=== PATIENT | male | born 1940 | race Caucasian/White ===

== ENCOUNTER 2021-09-01 17:21 | Inpatient (IN) | payer MEDICARE ==
[~2021-09-01] VITALS: Ht 167.6 cm; Wt 100.5 kg
[2021-09-01 18:06] LABS: BASOPHILS % (AUTO) 0.3 % (0.0-2.0); EOSINOPHILS % (AUTO) 0.7 % (1.0-6.0); HEMATOCRIT 44.7 % (41-53); HEMOGLOBIN 15.1 g/dL (13.5-17.5); LYMPHOCYTES # (AUTO) 1.3 K/uL (1.0-4.8); LYMPHOCYTES % (AUTO) 15.1 % (22.0-44.0); MEAN CORPUSCULAR HEMOGLOBIN 29.5 pg (26.0-34.0); MEAN CORPUSCULAR HGB CONC 33.7 G/dL (31.0-37.0); MEAN CORPUSCULAR VOLUME 87 fL (80-100); MONOCYTES # (AUTO) 0.5 K/uL (0.1-1.0); NEUTROPHILS # (AUTO) 6.9 K/uL (1.8-7.7); NEUTROPHILS % (AUTO) 77.9 % (40.0-70.0); PLATELET COUNT (AUTO) 217 K/uL (150-450); RED BLOOD CELL COUNT(AUTO) 5.11 MIL/uL (4.50-5.90); RED CELL DISTRIBUTION WIDTH 14.7 % (11.5-14.5)
[2021-09-01] MEDS ORDERED: DEXTROSE 50%-WATER 25 GM/50 ML SYRINGE IVP PRN (18:15)
[2021-09-01] MEDS ORDERED: INSULIN LISPRO 100 UNITS/ML SQ PRN (18:15)
[2021-09-01] MEDS ORDERED: OxyCODONE HCL/ACETAMINOPHEN 5-325 MG TABLET PO PRN (18:15)
[2021-09-01] MEDS ORDERED: MORPHINE SULFATE 4 MG/ML SYRINGE IVP PRN (18:15)
[2021-09-01] MEDS ORDERED: ONDANSETRON HCL 4 MG/2 ML VIAL IVP PRN (18:15)
[2021-09-01 18:20] LABS: PROTHROMBIN TIME 10.9 SEC (9.4-11.6)
[2021-09-01 18:25] LABS: CALCIUM, TOTAL 9.1 mg/dL (8.8-10.5); CREATININE 1.48 mg/dL (0.60-1.30); POTASSIUM 3.5 mmol/L (3.5-5.1)
[2021-09-01 18:48] LABS: ALBUMIN 3.3 g/dL (3.4-5.0); BILIRUBIN,TOTAL 0.4 mg/dL (0.1-1.0); MAGNESIUM 2.1 mg/dL (1.80-2.40); THYROID STIMULATING HORMONE 2.38 uIU/mL (0.36-3.74); TOTAL PROTEIN, SERUM 6.8 g/dL (6.4-8.2)
[2021-09-01 19:08] LABS: COVID AG,FIA SOURCE NASAL SWAB
[2021-09-01 19:45] VITALS: BP 143/74
[2021-09-01] MEDS: DOCUSATE SODIUM 100 MG CAPSULE PO SCH (21:00)
[2021-09-01] MEDS: CARVEDILOL 6.25 MG TABLET PO SCH (21:19)
[2021-09-01] MEDS: HEPARIN SODIUM,PORCINE 5,000 UNITS/ML VIAL SQ SCH (23:34)
[2021-09-01 23:58] VITALS: BP 117/54
[2021-09-02] VITALS (18 sets, daily range): BP systolic 95–152; BP diastolic 54–87
[2021-09-02 02:01] LABS: GLUCOMETER DEV NAME(LOC) 5S.2B; GLUCOSE,POINT OF CARE 130 MG/DL (70-110)
[2021-09-02] MEDS ORDERED: OMEP20 PO (04:16)
[2021-09-02] MEDS: HEPARIN SODIUM,PORCINE 5,000 UNITS/ML VIAL SQ SCH ×2 (08:14→16:00)
[2021-09-02] MEDS: ASPIRIN 81 MG CHEWABLE TABLET PO SCH (08:15)
[2021-09-02] MEDS: ATORVASTATIN CALCIUM 40 MG TABLET PO SCH (08:15)
[2021-09-02] MEDS: CARVEDILOL 6.25 MG TABLET PO SCH ×3 (08:15→20:45)
[2021-09-02] MEDS: FAMOTIDINE 20 MG TABLET PO SCH (08:15)
[2021-09-02] MEDS: DOCUSATE SODIUM 100 MG CAPSULE PO SCH ×2 (08:15→20:44)
[2021-09-02] MEDS ORDERED: MECL-134 PO (08:28)
[2021-09-02] MEDS ORDERED: TAMS-13 PO (08:28)
[2021-09-02] MEDS ORDERED: CLOP75TA60 PO (08:28)
[2021-09-02] MEDS ORDERED: AMIT25TA10 PO (08:28)
[2021-09-02] MEDS ORDERED: GABA-1216 PO (08:28)
[2021-09-02] MEDS ORDERED: ERGO500054 PO (08:28)
[2021-09-02] MEDS ORDERED: LEVO25TA9 PO (08:40)
[2021-09-02] MEDS ORDERED: LORA10TA7 PO (08:40)
[2021-09-02] MEDS ORDERED: FINA-27 PO (08:40)
[2021-09-02] MEDS ORDERED: ATOR20TA86 PO (08:40)
[2021-09-02] MEDS ORDERED: GLIM2 PO (08:40)
[2021-09-02] MEDS ORDERED: FURO20 PO (08:40)
[2021-09-02 12:51] LABS: GLUCOMETER DEV NAME(LOC) 5N.1C; GLUCOSE,POINT OF CARE 134 MG/DL (70-110)
[2021-09-02 12:51] LABS: GLUCOMETER DEV NAME(LOC) 5N.1C; GLUCOSE,POINT OF CARE 95 MG/DL (70-110)
[2021-09-02] MEDS ORDERED: 0.9% SODIUM CHLORIDE 10 ML SYRINGE IVP ONE (13:26)
[2021-09-02] MEDS ORDERED: LIDOCAINE/PF 1% 30 ML VIAL ONE (13:28)
[2021-09-02] MEDS ORDERED: IOHEXOL 300 MG/ML 100 ML VIAL ONE (13:28)
[2021-09-02] MEDS ORDERED: SODIUM BICARBONATE 50 MEQ/50 ML VIAL ONE (13:28)
[2021-09-02] MEDS ORDERED: HEPARIN SODIUM 1000 UNITS/NS 1,000 ML ONE (13:28)
[2021-09-02] MEDS ORDERED: IOHEXOL 300 MG/ML 150 ML VIAL ONE (13:28)
[2021-09-02] MEDS ORDERED: IOHEXOL 300 MG/ML 50 ML VIAL ONE (13:28)
[2021-09-02] MEDS ORDERED: FentaNYL CITRATE PF 100 MCG/2 ML VIAL ONE (13:31)
[2021-09-02] MEDS ORDERED: MIDAZOLAM HCL 2 MG/2 ML VIAL ONE (13:32)
[2021-09-02] MEDS ORDERED: LOSA-381 PO (13:47)
[2021-09-02] MEDS ORDERED: LATA2.5D14 OU (13:47)
[2021-09-02] MEDS ORDERED: HydrALAZINE HCL 20 MG/ML VIAL ONE (13:59)
[2021-09-02] MEDS ORDERED: MIDAZOLAM HCL 2 MG/2 ML VIAL IVP ONE (14:00)
[2021-09-02] MEDS ORDERED: FentaNYL CITRATE PF 100 MCG/2 ML VIAL IVP ONE (14:00)
[2021-09-02] MEDS ORDERED: IOHEXOL 300 MG/ML 150 ML VIAL IARTER ONE (14:00)
[2021-09-02] MEDS ORDERED: HEPARIN SODIUM 1000 UNITS/NS 1,000 ML IARTER ONE (14:00)
[2021-09-02] MEDS ORDERED: LIDOCAINE 1% 30 ML/SOD BICARB 8.4% 4 ML SQ ONE (14:00)
[2021-09-02] MEDS ORDERED: HydrALAZINE HCL 20 MG/ML VIAL IVP ONE (14:15)
[2021-09-02] MEDS ORDERED: SODIUM CHLORIDE 0.9% 500 ML IV ONE (16:00)
[2021-09-02] MEDS: ACETAMINOPHEN 325 MG TABLET PO PRN (17:09)
[2021-09-02 18:51] LABS: GLUCOMETER DEV NAME(LOC) 5N.1C; GLUCOSE,POINT OF CARE 144 MG/DL (70-110)
[2021-09-02 21:16] LABS: GLUCOMETER DEV NAME(LOC) 5S.2B; GLUCOSE,POINT OF CARE 113 MG/DL (70-110)
[2021-09-03] VITALS: BP 136/72
[2021-09-03] MEDS: ACETAMINOPHEN 325 MG TABLET PO PRN (03:03)
[2021-09-03 04:00] VITALS: BP 150/76
[2021-09-03 04:10] VITALS: BP 150/76
[2021-09-03 08:00] VITALS: BP 156/82
[2021-09-03 08:56] VITALS: BP 156/82
[2021-09-03] MEDS ORDERED: AMLO-258 PO (09:10)
[2021-09-03] MEDS: ASPIRIN 81 MG CHEWABLE TABLET PO SCH (09:18)
[2021-09-03] MEDS: ATORVASTATIN CALCIUM 40 MG TABLET PO SCH (09:18)
[2021-09-03] MEDS: CARVEDILOL 6.25 MG TABLET PO SCH (09:18)
[2021-09-03] MEDS: HEPARIN SODIUM,PORCINE 5,000 UNITS/ML VIAL SQ SCH ×2 (09:18)
[2021-09-03] MEDS: DOCUSATE SODIUM 100 MG CAPSULE PO SCH (09:18)
[2021-09-03] MEDS: FAMOTIDINE 20 MG TABLET PO SCH (09:18)
[2021-09-03 09:50] LABS: CALCIUM, TOTAL 8.5 mg/dL (8.8-10.5); CREATININE 1.28 mg/dL (0.60-1.30); POTASSIUM 3.3 mmol/L (3.5-5.1)
[2021-09-03] MEDS ORDERED: CARV3 PO (10:40)
[2021-09-03] MEDS ORDERED: POTASSIUM CHLORIDE 20 MEQ ER TABLET PO ONE (10:45)
[2021-09-03 12:02] LABS: GLUCOMETER DEV NAME(LOC) 5S.2B; GLUCOSE,POINT OF CARE 105 MG/DL (70-110)
[2021-09-03 14:00] LABS: GLUCOMETER DEV NAME(LOC) 5N.3; GLUCOSE,POINT OF CARE 87 MG/DL (70-110)
== END 2021-09-03 12:45 | disposition home or self-care (01) | DRG 287 ==
LOC: EMS 17:21 → 5S 18:10
PROVIDERS: ADMIT Internal Medicine; ATTEND Internal Medicine
PROC: B2111ZZ Fluoroscopy of Multiple Coronary Arteries using Low Osmolar Contrast (ICD-10-PCS; principal; 2021-09-02)
PROC: B41F1ZZ Fluoroscopy of Right Lower Extremity Arteries using Low Osmolar Contrast (ICD-10-PCS; 2021-09-02)
PROC: 4A023N7 Measurement of Cardiac Sampling and Pressure, Left Heart, Percutaneous Approach (ICD-10-PCS; 2021-09-02)
DX: I20.0 Unstable angina (principal); E11.9 Type 2 diabetes mellitus without complications; I11.9 Hypertensive heart disease without heart failure; Z96.653 Presence of artificial knee joint, bilateral; E03.9 Hypothyroidism, unspecified; M79.606 Pain in leg, unspecified; Z20.822 Contact with and (suspected) exposure to COVID-19; I48.91 Unspecified atrial fibrillation; Z95.5 Presence of coronary angioplasty implant and graft; Z79.899 Other long term (current) drug therapy; Z79.82 Long term (current) use of aspirin
CPT/HCPCS: 71045; 80048; 80053; 82962; 83735; 83880; 84443; 84484; 85025; 85610; 85730; 87081; 93005; 99291; J0360; J1644; J2250; J3010; J3490; J7040; Q9967; 36415-L1; 36415-TC